=== PATIENT | male | born 1970 | race Two or more races ===

== ENCOUNTER 2024-09-03 07:38 | Emergency (ER) | payer MEDICAID ==
[~2024-09-03] VITALS: Ht 175.3 cm; Wt 100.0 kg
[2024-09-03 08:19] VITALS: BP 136/82; PULSE 74; RESP 20; TEMP 98.5; O2SAT 98
--- NOTE | 2024-09-03 08:21 | ED.PDOC ---
Musculoskeletal HPI Comments 53 year old male with no pertinent hx preset for left foot and ankle pain x 2 days after dropping a hitch that weighted 40 lb Pain located to dorsal aspect of the metacarpals and lateral malleolus Able to ambulate Pain rated 7/10 Fractured same foot years ago Denies redness or swelling around the ankle Denies fever chills night sweats nausea vomiting Chief Complaint: Lower Extremity Time Seen by MD: 07:45 Reviewed Notes: Nurses Notes, Medications, Allergies Allergies: Coded Allergies: NO KNOWN ALLERGIES (Unverified , 09/03/24) Information Source: Patient Mode of Arrival: Wheelchair Family History Family History: Reviewed,noncontributory to illness Social History Smoker: Non-Smoker Alcohol: Denies ETOH Use Drugs: Denies Drug Use All Other Systems: Reviewed and Negative (Per HPI) Physical Exam General Appearance: No Apparent Distress, Normal HEENT: Normal ENT Inspection, Pharynx Normal, TMs Normal Neck: Full Range of Motion, Non-Tender, Normal, Normal Inspection Respiratory: Chest Non-Tender, Lungs Clear, No Accessory Muscle Use, No Respiratory Distress, Normal Breath Sounds Cardiovascular: No Edema, No JVD, No Murmur, No Gallop, Normal Peripheral Pulses, Regular Rate/Rhythm Breast Exam: Deferred Gastrointestinal: No Organomegaly, Non Tender, No Pulsatile Mass, Normal Bowel Sounds, Soft Genitalia: Deferred Pelvic: Deferred Rectal: Deferred Extremities: No calf tenderness, Normal capillary refill, Normal inspection, Normal range of motion, Non-tender, No pedal edema Musculoskeletal : Apperance: Normal Neurologic: Alert, No Motor Deficits, Normal Affect, Normal Mood, No Sensory Deficits Cerebellar Function: Normal Reflexes: Normal Skin: Dry, Normal Color, Warm Lymphatic: No Adenopathy Was a procedure done? Was a procedure done?: No Images 1 - No gross abnormality on inspection. No soft tissue swelling. No ecchymosis. Localized tenderness to the dorsal aspect of the metacarpals. Full range of motion. Dorsalis pedis 2+. Distal neuro sensation intact Differential Diagnosis EXT Differential Diagnosis: Fracture, Sprain, Dislocation X-Ray, Labs, Meds, VS Vital Signs Date Time Temp Pulse Resp B/P (MAP) Pulse Ox O2 Delivery O2 Flow Rate FiO2 09/03/24 08:19 98.5 74 20 136/82 (100) 98 98.5 09/03/24 08:19 74 20 98 Room Air 09/03/24 07:45 98.3 79 20 135/87 (103) 96 Current Medications Medications (Trade) Dose Ordered Sig/Sameer Route Start Time Stop Time Status Last Admin Acetaminophen/ Hydrocodone Bitart ([place] 10/325MG Tab) 1 tab ONCE ONCE PO 09/03/24 08:30 09/03/24 08:45 DC 09/03/24 08:57 PATIENT: MICHELLE LOVEACCT: [id number]: [id number] : 1970 LOC: ER ROOM / BED: / AGE / SEX: 53 / M ADM STATUS: REG ER SERVICE 9 ORDERING PHYSICIAN: DANIEL AVENDANO NP PROCEDURE(s): LFOOT - L FOOT 3 VIEW XRAY REASON: crushed injury 2 days ago ORDER NUMBER(s): [id number], ACCESSION NUMBER(s): [id number] CLINICAL INDICATION: trauma TECHNIQUE: 3 radiographic views of the left foot were obtained. Comparison: None FINDINGS/IMPRESSION: There is no evidence of acute fracture or dislocation. The visualized joint space is well maintained. The alignment is anatomical. There is no radiopaque foreign body. ATED BY: MAURILIO ORTIZ MD DICTATED DATE/TIME: 09/03/24899 SIGNED BY: MAURILIO ORTIZ MD SIGNED DATE/TIME: 09/03/24899 CC: X-Ray, Labs, Meds, VS Comment Findings: No fracture or dislocation My wet read reveals no apparent acute bony abnormality, no FB, minimal to no soft tissue swelling and appropriate alignment. Presentation most consistent with Sprain. Patient does not currently demonstrate complications of sprain such as compartment syndrome, arterial or nerve injury. Differentials considered but not limited to: sprain, fracture, achilles tendon rupture The joint itself is non-irritable with ROM and there is no overlying redness and warmth to suggest injection. The Achilles and dorsiflexion tendon are non-tender and extension is intact. Disposition: Discharge. Supportive bracing provided. Patient was placed in an air-splint, WBAT. RICE. Strict return precautions and instructions to follow up with primary MD within 24-48 hours for further evaluation. May benefit from additional imaging such as MRI. NSAIDs as needed for pain Time of 1ST Reevaluation: 09:15 Reevaluation 1ST: Improved Patient Education/Counseling: Diagnosis, Treatment Family Education/Counseling: Diagnosis, Treatment Departure 1 Departure Time of Disposition: 09:29 Impression: Primary Impression: Foot sprain Qualified Codes: S93.602A - Unspecified sprain of left foot, initial encounter Additional Impression: Injury, crush, foot Qualified Codes: S97.82XA - Crushing injury of left foot, initial encounter Disposition: HOME / SELF CARE / HOMELESS Condition: Stable e-Prescriptions Ibuprofen Micronized (Ibuprofen) 800 Mg Tab 800 MG PO TIDWM for 7 Days, #21 TAB 0 Refills Prov: DANIEL AVENDANO NP 09/03/24 Discharged With: Self Critical Care Note Critical Care Time?: No Stability Stability form required: No Heart Score Heart Score: Heart Score Response (Comments) Value History N/A 0 EKG N/A 0 Age N/A 0 Risk Factors N/A 0 Troponin N/A 0 Total 0 DANIEL AVENDANO NP Sep 03, 2024 08:21
[2024-09-03] MEDS: HYDROcodone-ACET 10/325MG TAB PO ONE (08:57)
--- NOTE | 2024-09-03 09:01 | DVH ---
CLINICAL INDICATION: trauma TECHNIQUE: 3 radiographic views of the left foot were obtained. Comparison: None FINDINGS/IMPRESSION: There is no evidence of acute fracture or dislocation. The visualized joint space is well maintained. The alignment is anatomical. There is no radiopaque foreign body.
--- NOTE | 2024-09-03 09:12 | DVH ---
CLINICAL INDICATION: Trauma TECHNIQUE: 3 radiographic views of the left ankle were obtained. Comparison: None FINDINGS/IMPRESSION: There is no evidence of acute fracture or dislocation. The visualized joint space is well maintained. The alignment is anatomical. There is no radiopaque foreign body.
[2024-09-03] MEDS ORDERED: IBUP-1455 PO (09:30)
== END 2024-09-03 10:00 | disposition home or self-care (01) ==
LOC: ER 07:38
DX: S97.82XA Crushing injury of left foot, initial encounter (principal); S93.602A Unspecified sprain of left foot, initial encounter; W23.0XXA Caught, crushed, jammed, or pinched between moving objects, initial encounter; Y93.89 Activity, other specified; Y92.89 Other specified places as the place of occurrence of the external cause; Y99.8 Other external cause status
CPT/HCPCS: 73610; 73630

== ENCOUNTER 2025-02-26 00:48 | Emergency (ER) | payer MEDICAID ==
[~2025-02-26] VITALS: Ht 175.3 cm; Wt 107.3 kg
[2025-02-26 00:48] VITALS: BP 132/83; PULSE 91; RESP 16; TEMP 98.2; O2SAT 96
[~2025-02-26 00:48] MED LIST: IBUP-1455 PO
[2025-02-26 01:52] LABS: Hematocrit 44.6 % (41.0-53.0); Hemoglobin 15.4 g/dL (13.5-17.5); Mean Corpuscular Hemoglobin 31.2 pg (28.0-32.0); Mean Corpuscular Volume 90.3 fL (80.0-100.0); Nucleated Red Blood Cells % 0.1 %
[2025-02-26 02:10] LABS: Alanine Aminotransferase 37 U/L (7-40); Albumin 4.2 g/dL (3.2-4.8); Alkaline Phosphatase 87 U/L (46-116); Anion Gap 6 (5-15); BUN/Creatinine Ratio 12.9 (10.0-20.0); Blood Urea Nitrogen 13 mg/dL (9-23); Calcium 10.3 mg/dL (8.7-10.4); Chloride 101 mmol/L (98-107); Glucose 91 mg/dL (74-106); Potassium 3.7 mmol/L (3.5-5.1); Sodium 139 mmol/L (136-145); Total Protein 7.0 g/dL (5.7-8.2)
[2025-02-26 02:11] LABS: Bilirubin, Total 0.3 mg/dL (0.2-1.0)
[2025-02-26 02:14] LABS: Carbon Dioxide 32 mmol/L (20-31)
[2025-02-26 02:23] LABS: Urine Protein, UAD Negative (Negative)
--- NOTE | 2025-02-26 02:38 | DVH ---
Exam: CT CT AB PEL WO CON-NO ORAL OR IV History: FLANK PAIN AND HEMATURIA Comparison Study: None Technique: Multidetector spiral CT of the abdomen was performed from lung bases to pubic symphysis. I maging was performed without IV contrast. Axial, coronal and sagittal multiplanar reformats were obta ined from the axial data set by the technologist. Radiation Dose : 1. Abdomen/Pelvis: CTDIvol 19.49 mGy, DLP 1190.64 mGy*cm. Findings: Evaluation of solid organs is limited due to lack of intravenous contrast use. Lung Bases: No acute or significant lung base finding. Normal heart size. No pleural or pericardial effusion. Liver: The liver is normal in size with a mildly lobulated surface morphology suggestive of cirrhotic change.. No focal lesions. Gallbladder and Biliary Tree: Unremarkable Spleen: Unremarkable Pancreas: The pancreas is grossly normal in appearance. Adrenal Glands: Unremarkable Kidneys: Mild bilateral perirenal edema. Kidneys are otherwise grossly normal without calculi or hydr onephrosis. 1.1 cm hemorrhagic appearing hyperdense exophytic right interpolar renal cyst. Bladder: Grossly unremarkable for degree of distention. Bowel: The stomach is grossly normal in appearance. Small bowel and colon are normal in caliber and d istribution. The appendix is normal. Ascites: Absent Lymphadenopathy: No mesenteric, retroperitoneal or periportal lymphadenopathy. Abdominal Wall and Mesentery: Unremarkable. Vasculature: The visualized abdominal aorta is normal in size and caliber. Evaluation of abdominal a nd pelvic vessels is limited due to lack of intravenous contrast. Pelvic Organs: Unremarkable Musculoskeletal: No aggressive focal bony lesions, acute fractures or dislocation. IMPRESSION: 1. No acute abdominal or pelvic findings. 2. Cirrhotic liver morphology. 3. Nonspecific mild bilateral perirenal edema without evidence of hydronephrosis or nephrolithiasis. 4. Hemorrhagic appearing hyperdense exophytic right interpolar renal cyst. Radiation optimization: All CT scans at this facility use at least one of these dose optimization jose hniques: automated exposure control mA and/or kV adjustment per patient size (includes targeted exam s where dose is matched to clinical indication) or iterative reconstruction.
== END 2025-02-26 03:26 | disposition left against medical advice (07) ==
LOC: ER 00:48
DX: R31.9 Hematuria, unspecified (principal); Z53.21 Procedure and treatment not carried out due to patient leaving prior to being seen by health care provider
CPT/HCPCS: 36415; 74176; 80053; 81001; 85025

== ENCOUNTER 2025-07-03 14:51 | Inpatient (IN) | payer MEDICAID ==
[~2025-07-03] VITALS: Ht 175.3 cm; Wt 106.8 kg
--- NOTE | 2025-07-03 15:41 | ED.PDOC ---
GI ASSESSMENT HPI Comments 54 y.o male with PMHx of hepatitis C and liver cirrhosis, presents to the ED for a chief complaint of chronic abdominal pain and bloating with new onset of hematuria x 1 day. Patient reports since his cirrhosis diagnosis, has not had normal bowel movements (runny) and constantly experiences burning sensation throughout his whole abdomen. Today he states bloating increased and is concerned of hematuria. He denies any fever, chills, rectal bleeding, dysuria, flank or back pain. Chief Complaint: Abdominal Pain Time Seen by MD: 15:33 Reviewed Notes: Nurses Notes, Medications, Allergies Allergies: Coded Allergies: NO KNOWN ALLERGIES (Unverified , 09/03/24) Home Meds No Active Prescriptions or Reported Meds Information Source: Patient Mode of Arrival: Ambulatory Timing: Days Duration: Since onset Quality: Burning, Sharp Vomitus: None Stool: Loose Severity: Moderate Recent: None Recent Hx of: None Pain Location: Diffuse Associated sign and symptoms: Diarrhea, Abdominal Pain Past Medical History PAST MEDICAL HISTORY: Liver Surgical History: Denies all surgeries Family History Family History: Reviewed,noncontributory to illness Social History Smoker: Non-Smoker Alcohol: Denies ETOH Use Drugs: Denies Drug Use Lives In: Home Constitutional: denies: chills, diaphoresis, fatigue, fever, malaise, sweats, weakness, others EENTM: denies: blurred vision, double vision, ear bleeding, ear discharge, ear drainage, ear pain, ear ringing, eye pain, eye redness, hearing loss, mouth pain, mouth swelling, nasal discharge, nose bleeding, nose congestion, nose pain, photophobia, tearing, throat pain, throat swelling, voice changes, others Respiratory: denies: cough, hemoptysis, orthopnea, SOB at rest, shortness of breath, SOB with excertion, stridor, wheezing, others Cardiovascular: denies: chest pain, dizzy spells, diaphoresis, Dyspnea on exertion, edema, irregular heart beat, left arm pain, lightheadedness, palpitations, PND, syncope, others Gastrointestinal: reports: abdominal pain, diarrhea; denies: abdomen distended, blood streaked bowels, constipated, dysphagia, difficulty swallowing, hematemesis, melena, nausea, poor appetite, poor fluid intake, rectal bleeding, rectal pain, vomiting, others Genitourinary: reports: hematuria; denies: burning, dysuria, flank pain, frequency, incontinence, penile discharge, penile sore, pain, testicle pain, testicle swelling, urgency, others Neurological: denies: dizziness, fainting, headache, left sided numbness, left sided weakness, numbness, paresthesia, pre-existing deficit, right sided numbness, right sided weakness, seizure, speech problems, tingling, tremors, weakness, others Musculoskeletal: denies: back pain, gout, joint pain, joint swelling, muscle pain, muscle stiffness, neck pain, others Integumetry: denies: bruises, change in color, change in hair/nails, dryness, laceration, lesions, lumps, rash, wounds, others Allergic/Immunocompromised: denies: Difficulty Healing, Frequent Infections, Hives, Itching, others Hematologic/Lymphatic: denies: anemia, blood clots, easy bleeding, easy bruising, swollen glands, others Endocrine: denies: excessive hunger, excessive sweating, excessive thirst, excessive urination, flushing, intolerance to cold, intolerance to heat, unexplained weight gain, unexplained weight loss, others Psychiatric: denies: anxiety, bipolar disorder, depression, hopeless, panic disorder, schizophrenia, sleepless, suicidal, others All Other Systems: Reviewed and Negative Physical Exam General Appearance: Normal, Other (uncomfortable appearing ) HEENT: Normal ENT Inspection, Pharynx Normal, TMs Normal Neck: Full Range of Motion, Non-Tender, Normal, Normal Inspection Respiratory: Chest Non-Tender, Lungs Clear, No Accessory Muscle Use, No Respiratory Distress, Normal Breath Sounds Cardiovascular: No Edema, No JVD, No Murmur, No Gallop, Normal Peripheral Pulses, Regular Rate/Rhythm Breast Exam: Deferred Gastrointestinal: Diffuse, No Organomegaly, No Pulsatile Mass, Normal Bowel Sounds, Tenderness Genitalia: Deferred Pelvic: Deferred Rectal: Deferred Extremities: No calf tenderness, Normal capillary refill, Normal inspection, Normal range of motion, Non-tender, No pedal edema Musculoskeletal : Apperance: Normal Neurologic: Alert, financial foundations associate II-XII nml as Tested, No Motor Deficits, Normal Affect, Normal Mood, No Sensory Deficits Cerebellar Function: Normal Reflexes: Normal Skin: Dry, Normal Color, Warm Lymphatic: No Adenopathy Was a procedure done? Was a procedure done?: No GI differential Dx Differential Diagnosis: Gastritis/PUD, Gastroenteritis, Hepatitis, Inflammatory BD, Ischemic Bowel, Pancreatitis, UTI, Dehydration, Electrolyte Imbalance, Food Poisoning, Bacterial, Parasitic, Viral X-Ray, Labs, Meds, VS Vital Signs Date Time Temp Pulse Resp B/P (MAP) Pulse Ox O2 Delivery O2 Flow Rate FiO2 07/03/25 21:00 89 Room Air* 0 07/03/25 21:00 98.0 93 18 127/68 (87) 89 98.0 07/03/25 19:14 100 18 95 Room Air* 0 07/03/25 19:14 98.4 100 18 132/91 (105) 95 98.4 07/03/25 18:26 195/100 07/03/25 17:06 92 16 195/100 07/03/25 17:05 98.8 94 16 195/100 (131) 92 98.8 07/03/25 16:35 76 18 139/98 07/03/25 16:19 76 18 98 Room Air 07/03/25 16:19 98.2 76 18 139/98 (112) 98 98.2 07/03/25 16:19 76 18 98 Room Air* 0 07/03/25 16:19 98.2 76 18 139/98 (112) 98 98.2 07/03/25 14:59 97.6 93 18 187/106 96 97.6 Lab Test 07/03/25 15:55 07/03/25 15:35 Range/Units White Blood Count 8.6 4.4-10.8 10^3/uL Red Blood Count 5.17 4.5-5.90 10^6/uL Hemoglobin 16.6 13.5-17.5 g/dL Hematocrit 46.8 41.0-53.0 % Mean Corpuscular Volume 90.4 80.0-100.0 fL Mean Corpuscular Hemoglobin 32.1 H 28.0-32.0 pg Mean Corpuscular Hemoglobin Concent 35.5 32.0-36.0 g/dL Red Cell Distribution Width 13.3 11.8-14.3 % Platelet Count 198 140-450 10^3/uL Mean Platelet Volume 9.4 6.9-10.8 fL Neutrophils (%) (Auto) 40.2 37.0-80.0 % Lymphocytes (%) (Auto) 44.7 10.0-50.0 % Monocytes (%) (Auto) 10.9 0.0-12.0 % Eosinophils (%) (Auto) 3.3 0.0-7.0 % Basophils (%) (Auto) 0.9 0.0-2.0 % Neutrophils # (Auto) 3.5 1.6-8.6 10 ^3/uL Lymphocytes # (Auto) 3.9 0.4-5.4 10 ^3/uL Monocytes # (Auto) 0.9 0-1.3 10 ^3/uL Eosinophils # (Auto) 0.3 0-0.8 10 ^3/uL Basophils # (Auto) 0.1 0-0.2 10 ^3/uL Nucleated Red Blood Cells 0.0 % Sodium Level 138 136-145 mmol/L Potassium Level 3.9 3.5-5.1 mmol/L Chloride Level 102 98-107 mmol/L Carbon Dioxide Level 28 20-31 mmol/L Anion Gap 8 5-15 Blood Urea Nitrogen 15 9-23 mg/dL Creatinine 1.14 0.700-1.30 mg/dL Glomerular Filtration Rate Calc 76 >90 mL/min BUN/Creatinine Ratio 13.2 10.0-20.0 Serum Glucose 93 74-106 mg/dL Calcium Level 9.7 8.7-10.4 mg/dL Total Bilirubin 0.6 0.2-1.0 mg/dL Aspartate Amino Transferase (AST) 34 13-40 U/L Alanine Aminotransferase (ALT) 49 H 7-40 U/L Alkaline Phosphatase 85 46-116 U/L Total Protein 7.9 5.7-8.2 g/dL Albumin 4.3 3.2-4.8 g/dL Lipase 31 12-53 U/L Urine Color Colorless Yellow Urine Clarity Clear Clear Urine pH 5.5 5.0-9.0 Urine Specific [place] 1.010 1.001-1.035 Urine Protein Negative Negative Urine Ketones Negative Negative Urine Blood Negative Negative /uL Urine Nitrite Negative Negative Urine Bilirubin Negative Negative Urine Urobilinogen Normal Negative mg/dL Urine Leukocyte Esterase Negative Negative /uL Urine RBC None seen 0 - 3 /hpf Urine Microscopic WBC < 1 0-3 /HPF Urine Squamous Epithelial Cells None seen <5 /hpf Urine Bacteria None seen None Seen /hpf Urine Glucose Normal Normal mg/dL Time of 1ST Reevaluation: 15:41 Reevaluation 1ST: Unchanged Patient Education/Counseling: Diagnosis, Treatment, Prognosis Family Education/Counseling: No Family Present SEPSIS Sepsis Screen Date sepsis recognized/suspect: Jul 03, 2025 Time Sepsis recognized/suspect: 150 Recent Procedure: No On Antibiotic Therapy: No Respiratory Rate >20: No Heart Rate >90: No Temp<36 C (96.8 F) or >38.3 C: No SBP <90 or MAP <65 mmHG: No New Acute Mental Status Change: No Is the patient on CPAP, BIPAP,: No Physician Orders Ct Ab Pel With Iv Con Only (07/03/25 17:27) Chest Portable (07/03/25 17:47) Code Status (07/03/25 20:48) Drug Screen (07/03/25 21:21) Admit (07/03/25 21:42) Echo 2d Mode Cardiac Dop (07/04/25 20:48) Vital Signs Date Time Temp Pulse Resp B/P (MAP) Pulse Ox O2 Delivery O2 Flow Rate FiO2 07/03/25 21:00 89 Room Air* 0 07/03/25 21:00 98.0 93 18 127/68 (87) 89 98.0 07/03/25 19:14 100 18 95 Room Air* 0 07/03/25 19:14 98.4 100 18 132/91 (105) 95 98.4 07/03/25 18:26 195/100 07/03/25 17:06 92 16 195/100 07/03/25 17:05 98.8 94 16 195/100 (131) 92 98.8 07/03/25 16:35 76 18 139/98 07/03/25 16:19 76 18 98 Room Air 07/03/25 16:19 98.2 76 18 139/98 (112) 98 98.2 07/03/25 16:19 76 18 98 Room Air* 0 07/03/25 16:19 98.2 76 18 139/98 (112) 98 98.2 07/03/25 14:59 97.6 93 18 187/106 96 97.6 Laboratory Tests Test 07/03/25 15:55 White Blood Count 8.6 10^3/uL (4.4-10.8) Departure 1 Departure Time of Disposition: 14:07 (Patient presented with abdominal pain that was concerning for possible appendicits, gastritis, cholecystitis, colitis, gastroenteritis, sbo, or orther possible surgical emergency. Data: 1. I ordered and reviewed the result of at least 3 labs including a CBC, BMP, and Urinalysis. 2. I independently interpreted the following tests: CT Abdomen and Pelvis is concerning for pyelo nephro .Risk:This patient has a high risk of morbidity due to further diagnostic testing or treatment and may suffer from an acute abdominal process disorder. Workup reveals pyelonephritis and patient should be admitted for further workup. and possible expert consultation. ) Impression: Primary Impression: Pyelonephritis Additional Impression: Intractable abdominal pain Disposition: ADMITTED INPATIENT Admit to: Med Surg Condition: Guarded e-Prescriptions No Active Prescriptions or Reported Meds Critical Care Note Critical Care Time?: Yes Critical care comment: Intractable abdominal pain Authorized and Performed by: Marshall Hernández MD Total critical care time: Approximately 39 minutes Due to a high probability of clinically significant, life threatening deterioration, the patient required my highest level of preparedness to intervene emergently and I personally spent this critical care time directly and personally managing the patient. This critical care time included obtaining a history; examining the patient; pulse oximetry; ordering and review of studies; arranging urgent treatment with development of a management plan; evaluation of patient's response to treatment; frequent reassessment; and, discussions with other providers. This critical care time was performed to assess and manage the high probability of imminent, life-threatening deterioration that could result in multi-organ failure. It was exclusive of separately billable procedures and treating other patients and teaching time. Please see my other sections and the rest of the note for further information on patient assessment and treatment. Stability Stability form required: No I personally scribed for MARSHALL HERNÁNDEZ MD ([email or web address]) on 07/03/25 at 15:41. Electronically submitted by Laura Doshi ([facility]). MARSHALL HERNÁNDEZ MD Jul 03, 2025 15:41
[2025-07-03 16:14] LABS: Hematocrit 46.8 % (41.0-53.0); Hemoglobin 16.6 g/dL (13.5-17.5); Mean Corpuscular Hemoglobin 32.1 pg (28.0-32.0); Mean Corpuscular Volume 90.4 fL (80.0-100.0); Nucleated Red Blood Cells % 0.0 %
[2025-07-03 16:19] VITALS: PULSE 76; RESP 18; O2SAT 98
[2025-07-03] MEDS: SODIUM CHLORIDE 0.9% 1,000 ML IV ONE (16:24)
[2025-07-03 16:30] LABS: Urine Protein, UAD Negative (Negative)
[2025-07-03 16:32] LABS: Albumin 4.3 g/dL (3.2-4.8); Alkaline Phosphatase 85 U/L (46-116); Anion Gap 8 (5-15); BUN/Creatinine Ratio 13.2 (10.0-20.0); Bilirubin, Total 0.6 mg/dL (0.2-1.0); Blood Urea Nitrogen 15 mg/dL (9-23); Calcium 9.7 mg/dL (8.7-10.4); Carbon Dioxide 28 mmol/L (20-31); Chloride 102 mmol/L (98-107); Glucose 93 mg/dL (74-106); Lipase 31 U/L (12-53); Potassium 3.9 mmol/L (3.5-5.1); Sodium 138 mmol/L (136-145); Total Protein 7.9 g/dL (5.7-8.2)
[2025-07-03 16:33] LABS: Alanine Aminotransferase 49 U/L (7-40)
[2025-07-03] MEDS: MORPHINE SULFATE 4 MG/ML SYR/VIAL IV ONE (16:35)
[2025-07-03] MEDS: ONDANSETRON HCL 4 MG/2 ML VIAL IV ONE (16:35)
[2025-07-03] MEDS: MORPHINE SULFATE 4 MG/ML SYR/VIAL ONE (17:04)
[2025-07-03] MEDS: ONDANSETRON HCL 4 MG/2 ML VIAL ONE (17:04)
--- NOTE | 2025-07-03 18:12 | DVH ---
CHEST RADIOGRAPH Indication: sob Technique: Single frontal view of the chest was obtained Comparison: None FINDINGS: Lines and Tubes: None Lungs: No focal consolidation. Pleura: No effusion. No pneumothorax. Cardiomediastinal contours: Unremarkable Bones: No acute osseous abnormality. IMPRESSION: 1. No acute cardiopulmonary disease.
[2025-07-03] MEDS: hydrALAZINE HCL 20 MG/ML VL IV ONE (18:26)
--- NOTE | 2025-07-03 18:26 | DVH ---
Exam: CT CT AB PEL WITH IV CON ONLY History: abdominal pain Comparison Study: None TECHNIQUE: A digital licensing worker image was obtained. During the uneventful, intravenous administration of contrast material, multislice data acquisition was obtained through the abdomen and pelvis. The data set was subsequently reconstructed into multiplanar reformats. RADIATION DOSE: CTDI vol 23.4 mGy. DLP 1239.6 mGy.cm Findings: Lungs: Basilar atelectasis/scarring. Liver: Nodular hepatic contour. Spleen: Unremarkable. Pancreas: Unremarkable. Gallbladder: Unremarkable. Adrenals: Unremarkable Kidneys: Nonspecific bilateral perinephric stranding. No hydronephrosis. 1.0 cm indeterminate right renal cyst. Pelvic Viscera: Unremarkable. Vasculature: Unremarkable. Retroperitoneum: Unremarkable. Bowel: No bowel obstruction. Portions of the bowel are decompressed, limiting assessment. The appendix is normal. Musculoskeletal: Grade 1 anterolisthesis of L5 on S1 on the basis of bilateral pars defects. Soft tissues: Unremarkable Impression: 1. Nonspecific bilateral perinephric stranding, clinical correlation is suggested to exclude infectious / inflammatory process. 2. 1.0 cm indeterminate right renal cyst. A nonemergent MRI of the abdomen is suggested in further assessment. 3. Additional findings as detailed.
[2025-07-03 19:14] VITALS: PULSE 100; RESP 18; O2SAT 95
[2025-07-03 21:00] VITALS: O2SAT 89
[2025-07-03] MEDS ORDERED: NITROGLYCERIN 0.4 MG SL TAB SL PRN (21:00)
[2025-07-03] MEDS: SODIUM CHLORIDE 0.9% 1,000 ML IV SCH (21:16)
--- NOTE | 2025-07-03 21:21 | DVHHPRES ---
History of Present Illness Resident Creating Document: AMELIE BARRETO RESIDENT History of Present Illness This is a 54-year-old male with past medical history of HCV s/p treatment 5 years ago, liver cirrhosis, HTN, sciatica visited ER today due to upper abdominal pain and, bloating and back pain which started for 3 days but worsen around 3:00 p.m. which is 8/10 intensity, tried Pepto-Bismol which does not help, no aggravating factor, no radiation. Abdominal pain associated with headache, nausea and vomiting 1 episode which contain food materials but no blood mixed with vomitus. Patient also noted 1 episode of hematuria yesterday which initially contain fresh blood and then pinkish in color. Patient visited the ER on 03/09/2025 due to hematuria. Never follow-up with urology. Currently patient denies any fever, chest pain, SOB, lower abdominal pain or any focal weakness. Past medical history: HCV s/p treatment, HTN, sciatica, liver cirrhosis Surgical history: Nothing contributory Family history: Nothing contributory Personal history: Smokes cigarettes for 30 years, marijuana, remote history of IV drug use Allergy: No known allergy PCP: Not selected Review of Systems Constitutional: Yes: Weakness, Malaise; No: Fever, Chills, Sweats, Other Eyes: No: Pain, Vision change, Conjunctivae inflammation, Eyelid inflammation, Other, Redness ENT: No: Ear pain, Ear discharge, Nose pain, Nose discharge, Nose congestion, Mouth pain, Mouth swelling, Throat pain, Throat swelling, Other Respiratory: No: Cough, Dry, Shortness of breath, SOB with excertion, Wheezing, Hemoptysis, Pleuritic Pain, Sputum, Wheezing, Other Cardiovascular: No: Chest Pain, Palpitations, Orthopnea, Paroxysmal Noc. Dyspnea, Edema, Lt Headedness, Other Gastrointestinal: Nausea, Vomiting, Abdominal Pain, Other (Bloating); No: Diarrhea, Constipation, Melena, Hematochezia Genitourinary: Hematuria Musculoskeletal: back pain; No: other, neck pain, shoulder pain, arm pain, hand pain, leg pain, foot pain Skin: No: Rash, Lesions, Jaundice, Bruising, Other Allergies: Coded Allergies: NO KNOWN ALLERGIES (Unverified , 09/03/24) Exam Vital Signs Vital Signs Date Time Temp Pulse Resp B/P (MAP) Pulse Ox O2 Delivery O2 Flow Rate FiO2 11/21/25 19:14 100 18 95 Room Air* 0 21 07/03/25 19:14 98.4 132/91 (105) 98.4 General Appearance: Alert, Oriented X3, Cooperative, moderate distress HEENT: Atraumatic, PERRLA, EOMI Respiratory: Clear to auscultation, Normal air movement Cardiovascular: Regular rate, Normal S1, Normal S2, No murmurs Abdominal: Normal bowel sounds, Soft, Other (Tender on deep palpation epigastric) Extremities: No clubbing, No cyanosis, Normal pulses Skin: No rashes, No breakdown Neuro: Normal gait, Normal speech, Strength at 5/5 X4 ext, Sensation intact Labs/Xrays Labs Test 07/03/25 15:55 07/03/25 15:35 Range/Units White Blood Count 8.6 4.4-10.8 10^3/uL Red Blood Count 5.17 4.5-5.90 10^6/uL Hemoglobin 16.6 13.5-17.5 g/dL Hematocrit 46.8 41.0-53.0 % Mean Corpuscular Volume 90.4 80.0-100.0 fL Mean Corpuscular Hemoglobin 32.1 H 28.0-32.0 pg Mean Corpuscular Hemoglobin Concent 35.5 32.0-36.0 g/dL Red Cell Distribution Width 13.3 11.8-14.3 % Platelet Count 198 140-450 10^3/uL Mean Platelet Volume 9.4 6.9-10.8 fL Neutrophils (%) (Auto) 40.2 37.0-80.0 % Lymphocytes (%) (Auto) 44.7 10.0-50.0 % Monocytes (%) (Auto) 10.9 0.0-12.0 % Eosinophils (%) (Auto) 3.3 0.0-7.0 % Basophils (%) (Auto) 0.9 0.0-2.0 % Neutrophils # (Auto) 3.5 1.6-8.6 10 ^3/uL Lymphocytes # (Auto) 3.9 0.4-5.4 10 ^3/uL Monocytes # (Auto) 0.9 0-1.3 10 ^3/uL Eosinophils # (Auto) 0.3 0-0.8 10 ^3/uL Basophils # (Auto) 0.1 0-0.2 10 ^3/uL Nucleated Red Blood Cells 0.0 % Sodium Level 138 136-145 mmol/L Potassium Level 3.9 3.5-5.1 mmol/L Chloride Level 102 98-107 mmol/L Carbon Dioxide Level 28 20-31 mmol/L Anion Gap 8 5-15 Blood Urea Nitrogen 15 9-23 mg/dL Creatinine 1.14 0.700-1.30 mg/dL Glomerular Filtration Rate Calc 76 >90 mL/min BUN/Creatinine Ratio 13.2 10.0-20.0 Serum Glucose 93 74-106 mg/dL Calcium Level 9.7 8.7-10.4 mg/dL Total Bilirubin 0.6 0.2-1.0 mg/dL Aspartate Amino Transferase (AST) 34 13-40 U/L Alanine Aminotransferase (ALT) 49 H 7-40 U/L Alkaline Phosphatase 85 46-116 U/L Total Protein 7.9 5.7-8.2 g/dL Albumin 4.3 3.2-4.8 g/dL Lipase 31 12-53 U/L Urine Color Colorless Yellow Urine Clarity Clear Clear Urine pH 5.5 5.0-9.0 Urine Specific [place] 1.010 1.001-1.035 Urine Protein Negative Negative Urine Ketones Negative Negative Urine Blood Negative Negative /uL Urine Nitrite Negative Negative Urine Bilirubin Negative Negative Urine Urobilinogen Normal Negative mg/dL Urine Leukocyte Esterase Negative Negative /uL Urine RBC None seen 0 - 3 /hpf Urine Microscopic WBC < 1 0-3 /HPF Urine Squamous Epithelial Cells None seen <5 /hpf Urine Bacteria None seen None Seen /hpf Urine Glucose Normal Normal mg/dL SEPSIS Sepsis Screen Date sepsis recognized/suspect: Jul 03, 2025 Time Sepsis recognized/suspect: 1502 Recent Procedure: No On Antibiotic Therapy: No Respiratory Rate >20: No Heart Rate >90: No Temp<36 C (96.8 F) or >38.3 C: No SBP <90 or MAP <65 mmHG: No New Acute Mental Status Change: No Is the patient on CPAP, BIPAP,: No Physician Orders Ct Ab Pel With Iv Con Only (07/03/25 17:27) Chest Portable (07/03/25 17:47) Admit (07/03/25 20:48) Code Status (07/03/25 20:48) Sodium Chloride 0.9% (07/03/25 21:00) Echo 2d Mode Cardiac Dop (07/03/25 20:48) Nitroglycerin Sublingual (Ntrostat Subli (07/03/25 21:00) Stat Ekg For Chest Pain (07/03/25 20:48) Notify Of Changes From Base (07/03/25 20:48) Cardiac Diet-2gna,Lofat,Lochol (07/04/25 Breakfast) Pantoprazole Tablet (Protonix Tablet) (07/04/25 06:00) Ketorolac Injection (Toradol Injection) (07/03/25 21:00) Vital Signs Date Time Temp Pulse Resp B/P (MAP) Pulse Ox O2 Delivery O2 Flow Rate FiO2 07/03/25 19:14 100 18 95 Room Air* 0 07/03/25 19:14 98.4 100 18 132/91 (105) 95 98.4 07/03/25 18:26 195/100 07/03/25 17:06 92 16 195/100 07/03/25 17:05 98.8 94 16 195/100 (131) 92 98.8 07/03/25 16:35 76 18 139/98 07/03/25 16:19 76 18 98 Room Air 07/03/25 16:19 98.2 76 18 139/98 (112) 98 98.2 07/03/25 16:19 76 18 98 Room Air* 0 07/03/25 16:19 98.2 76 18 139/98 (112) 98 98.2 07/03/25 14:59 97.6 93 18 187/106 96 97.6 Laboratory Tests Test 07/03/25 15:55 White Blood Count 8.6 10^3/uL (4.4-10.8) Medications Medications Dose Ordered Sig/Sameer Route Start Time Stop Time Status Last Admin Dose Admin Hydralazine HCl 20 mg ONCE ONCE IV 07/03/25 17:30 07/03/25 17:35 DC 07/03/25 18:26 20 MG Morphine Sulfate 4 mg ONCE ONCE IV 07/03/25 15:45 07/03/25 15:46 DC 07/03/25 16:35 4 MG Ondansetron HCl 4 mg ONCE ONCE IV 07/03/25 15:45 07/03/25 15:46 DC 07/03/25 16:35 4 MG Sodium Chloride 1,000 ml @ 1,000 mls/hr Q1H ONCE IV 07/03/25 15:45 07/03/25 16:44 DC 07/03/25 16:24 1,000 MLS/HR Assessment/Plan Assessment/Plan Intractable abdominal pain likely pyelonephritis Right renal cyst Hematuria Patient came with intractable abdominal pain and back pain in ER patient received hydralazine, ondansetron, morphine, NSS UA- negative lipase 31 CT abdomen with IV contrast- Nodular hepatic contour. Nonspecific bilateral perinephric stranding. 1.0 cm indeterminate right renal cyst. Ketorolac IVF Monitor lab Urology outpatient. Liver cirrhosis History of hepatitis-C infection s/p treatment Transaminitis ALT 49, AST and ALP in normal limit follow-up labs Grade 1 anterolisthesis of L5 on S1 Chronic Low-back pain History of sciatic CT abdomen with IV contrast- Nodular hepatic contour. Bibasilar lung atelectasis or scarring CT abdomen and pelvis; Lungs: Basilar atelectasis/scarring CXR- No acute cardiopulmonary disease. Essential hypertension BP 187/106 and repeat BP 132/91 Start losartan 25 mg EKG Echocardiogram Monitor blood Smoking/substance abuse Remote history of IVD Counseling done. More than 13 minute spent. Diet: Cardiac GI prophylaxis: Pantoprazole DVT prophylaxis: Patient ambulating Goals of care discussion. More than 29 minute spent with patient. Full code status Case discussed with Dr. Adams. Plan discussed with: Patient, Other (Nurse) My Orders Orders - AMELIE BARRETO RESIDENT Procedure Category Date Status Time Admit ADMIT 07/03/25 Transmitted 20:48 Code Status CODE 07/03/25 Transmitted 20:48 Sodium Chloride 0.9% PHA 07/03/25 Logged 21:00 Echo 2d Mode Cardiac US 07/03/25 Logged DOP 20:48 Nitroglycerin PHA 07/03/25 Logged Sublingual (Ntrostat 21:00 Stat Ekg For Chest JARRELL 07/03/25 In Process Pain 20:48 Notify Md Of Changes JARRELL 07/03/25 In Process From Base 20:48 Cardiac DIET 07/04/25 Transmitted Diet-2gna,Lofat,Lochol Breakfast Pantoprazole Tablet PHA 07/04/25 Logged (Protonix Tablet) 06:00 Ketorolac Injection PHA 07/03/25 Logged (Toradol Injection) 21:00 Date of Service: Jul 03, 2025 Billing Provider: DANIEL ADAMS MD Common Visit Codes: [id number] INP/OBS CARE (HIGH) Secondary Visit Codes: [id number] CARE PLAN 30 MINUTES AMELIE BARRETO RESIDENT Jul 03, 2025 21:21
[2025-07-03] MEDS: KETOROLAC TROMETH 30 MG/ML 1ML VIAL IV PRN (22:43)
[2025-07-03 23:39] VITALS: BP 123/67; PULSE 87; RESP 17; TEMP 97.7; O2SAT 100; O2SAT 99
[2025-07-04 01:00] VITALS: BP 115/74; PULSE 87; RESP 17; TEMP 97.2; O2SAT 100
[2025-07-04 05:00] VITALS: BP 101/63; PULSE 83; RESP 18; TEMP 97.6; O2SAT 98
[2025-07-04] MEDS ORDERED: PANTOPRAZOLE 40 MG TAB PO ONE (05:52)
[2025-07-04] MEDS: PANTOPRAZOLE 40 MG TAB PO SCH (06:20)
[2025-07-04 07:44] LABS: Hematocrit 43.9 % (41.0-53.0); Hemoglobin 15.3 g/dL (13.5-17.5); Mean Corpuscular Hemoglobin 31.9 pg (28.0-32.0); Mean Corpuscular Volume 91.6 fL (80.0-100.0); Nucleated Red Blood Cells % 0.0 %
[2025-07-04 07:50] LABS: Anion Gap 9 (5-15); Carbon Dioxide 27 mmol/L (20-31); Chloride 104 mmol/L (98-107); Potassium 4.5 mmol/L (3.5-5.1); Sodium 140 mmol/L (136-145)
[2025-07-04 07:51] LABS: Calcium 9.2 mg/dL (8.7-10.4)
[2025-07-04 07:56] LABS: BUN/Creatinine Ratio 13.4 (10.0-20.0); Blood Urea Nitrogen 15 mg/dL (9-23); Glucose 83 mg/dL (74-106); Triglycerides 93 mg/dL (< 150)
[2025-07-04 07:58] LABS: Cholesterol 165 mg/dL (< 200)
[2025-07-04 08:05] LABS: HDL Cholesterol 34 mg/dL (40-59)
[2025-07-04 09:00] VITALS: BP 117/76; PULSE 67; RESP 15; TEMP 97.6; O2SAT 98
[2025-07-04] MEDS: LOSARTAN POTASSIUM 25 MG TAB PO SCH (09:33)
--- NOTE | 2025-07-04 12:11 | DVHPN2 ---
Reviewed: Care Plan, H&P, Labs, Medications, Previous Orders, Radiology Changes from previous H/P or p: No Changes Eyes: No Pain, No Vision change, No Conjunctivae inflammation, No Eyelid inflammation, No Other, No Redness ENT: No Ear pain, No Ear discharge, No Nose pain, No Nose discharge, No Nose congestion, No Mouth pain, No Mouth swelling, No Throat pain, No Throat swelling, No Other Cardiovascular: No Chest Pain, No Palpitations, No Orthopnea, No Paroxysmal Noc. Dyspnea, No Edema, No Lt Headedness, No Other Respiratory: No Cough, No Dry, No Shortness of breath, No SOB with excertion, No Wheezing, No Hemoptysis, No Pleuritic Pain, No Sputum, No Other Gastrointestinal: Nausea, Vomiting, Abdominal Pain; No Diarrhea, No Constipation, No Melena, No Hematochezia; Other (Bloating) Genitourinary: Hematuria Musculoskeletal: No other, No neck pain, No shoulder pain, No arm pain; back pain; No hand pain, No leg pain, No foot pain Skin: No Rash, No Lesions, No Jaundice, No Bruising, No Other Objective Vitals Vital Signs Date Time Temp Pulse Resp B/P (MAP) Pulse Ox O2 Delivery O2 Flow Rate FiO2 07/04/25 09:33 117/76 07/04/25 08:30 Room Air* 0 21 07/04/25 05:00 97.6 83 18 98 97.6 Intake/Output Intake and Output 07/04/25 07:00 Intake Total 2610 ml Balance 2610 ml Intake Oral 1040 ml IV Total 1570 ml # Voids 1 Medications Current Medications Medications Dose Ordered Sig/Sameer Route Start Time Stop Time Status Last Admin Dose Admin Sodium Chloride 1,000 ml @ 120 mls/hr Q8H20M IV 07/03/25 21:00 07/04/25 06:27 120 MLS/HR Nitroglycerin 0.4 mg Q5MINP PRN SL 07/03/25 21:00 Pantoprazole Sodium 40 mg DAILY@0600 PO 07/04/25 06:00 07/04/25 06:20 40 MG Ketorolac Tromethamine 15 mg Q6HPRN PRN IV 07/03/25 21:00 07/08/25 20:59 07/03/25 22:43 15 MG Losartan Potassium 25 mg DAILY PO 07/04/25 10:00 07/04/25 09:33 25 MG Laboratory Results Laboratory Tests 07/04/25 06:37 Chemistry Test 07/03/25 15:55 07/04/25 06:37 Albumin 4.3 g/dL (3.2-4.8) Calcium Level 9.7 mg/dL (8.7-10.4) 9.2 mg/dL (8.7-10.4) Total Protein 7.9 g/dL (5.7-8.2) Lipid panel Test 07/03/25 15:55 07/04/25 06:37 Lipase 31 U/L (12-53) Cholesterol Level 165 mg/dL (< 200) HDL Cholesterol 34 mg/dL (40-59) L Triglycerides Level 93 mg/dL (< 150) LFT Test 07/03/25 15:55 Alanine Aminotransferase (ALT) 49 U/L (7-40) H Alkaline Phosphatase 85 U/L (46-116) Aspartate Amino Transferase (AST) 34 U/L (13-40) Total Bilirubin 0.6 mg/dL (0.2-1.0) HgA1c, TSH Test 07/04/25 06:37 Hemoglobin A1c 5.4 % A1C (<5.7) Thyroid Stimulating Hormone (TSH) 1.89 uIU/mL (0.55-4.78) Urinalysis Test 07/03/25 15:35 Urine Color Colorless (Yellow) Urine Clarity Clear (Clear) Urine pH 5.5 (5.0-9.0) Urine Specific [place] 1.010 (1.001-1.035) Urine Protein Negative (Negative) Urine Ketones Negative (Negative) Urine Blood Negative /uL (Negative) Urine Nitrite Negative (Negative) Urine Bilirubin Negative (Negative) Urine Urobilinogen Normal mg/dL (Negative) Urine Leukocyte Esterase Negative /uL (Negative) Urine RBC None seen /hpf (0 - 3) Urine Microscopic WBC < 1 /HPF (0-3) Urine Squamous Epithelial Cells None seen /hpf (<5) Urine Bacteria None seen /hpf (None Seen) Urine Glucose Normal mg/dL (Normal) Labs and/or images reviewed: Labs reviewed by me, Image(s) reviewed by me Assessment/Plan Assessment/Plan Intractable abdominal pain CT abdomen pelvis without contrast negative lipase normal: Pain medications IV fluids Right renal cyst Hematuria Liver cirrhosis History of hepatitis-C infection s/p treatment Transaminitis Grade 1 anterolisthesis of L5 on S1 Chronic Low-back pain History of sciatica Hypertension Chronic current smoker: Counseling time spent 20 minutes Remote history of IV drug abuse Plan discussed with: Patient Date of Service: Jul 04, 2025 Billing Provider: LEO JUNIOR MD Common Visit Codes: [id number] INP/OBS CARE(HIGH) LEO JUNIOR MD Jul 04, 2025 12:11
[2025-07-04 13:00] VITALS: BP 112/66; PULSE 71; RESP 19; TEMP 98; O2SAT 95
--- NOTE | 2025-07-04 15:22 | DVHSR ---
APPROVED REPORT EXAM: Two-dimensional and M-mode echocardiogram with Doppler and color Doppler. Blood Pressure: 101/63 mmHg INDICATION History of Hypertension rule out cardiac RISK FACTORS Height: 5' 9", Weight: 235 DIMENSIONS LVDd 4.5 (3.8-5.7cm) LA (2D) 3.8 (1.9-4.0cm) Aortic Root 3.6 (2.0-3.7cm) LVDs 3.0 (2.5-4.0cm) LA (MM) (1.9-4.0cm) Aortic Cusp Exc 1.7 (1.5-2.0cm) EF (%) 60.0 (55-70%) Rt. Atrium 4.0 (1.9-4.0cm) Asc. Aorta cm IVSd 0.9 (0.7-1.1cm) RV (D) (1.8-2.4cm) PWd 0.9 (0.7-1.1cm) Mitral Valve Mitral Mitral Stenosis E wave 0.90m/s MV Mean GR. mmHg A wave 0.90m/s MV Peak GR. mmHg E/A ratio 1.0 2D MVA cm2 Aortic Valve Aortic Valve Aortic Stenosis V1 0.90m/s AO Mean GR. 4mmHg V2 1.30m/s AO Peak GR. 7mmHg LVOT Diameter 2.4 (1.8-2.4cm) Doppler YAZAN 3.13cm2 Pulmonic Valve V2 0.80m/s Conclusion Technically a good study, Normal Sinus Rythm. Difficult acoustic windows Normal Chamber sizes. Normal Valves Left ventricular systolic performance is preserved with an EF of 65% and normal RV function. Doppler is normal No masses or vegetations dicernable. No pericardial effusion noted.
--- NOTE | 2025-07-05 07:54 | DVHDS2 ---
Discharge Summary Date of Admission Jul 03, 2025 at 21:42 Date of Discharge: Jul 04, 2025 Admitting Diagnosis Abdominal pain Wounds: None Labs/Diagnostic Data: Laboratory Results Test 07/04/25 06:37 07/04/25 01:38 07/03/25 15:55 07/03/25 15:35 White Blood Count 6.1 10^3/uL (4.4-10.8) Red Blood Count 4.79 10^6/uL (4.5-5.90) Hemoglobin 15.3 g/dL (13.5-17.5) Hematocrit 43.9 % (41.0-53.0) Mean Corpuscular Volume 91.6 fL (80.0-100.0) Mean Corpuscular Hemoglobin 31.9 pg (28.0-32.0) Mean Corpuscular Hemoglobin Concent 34.8 g/dL (32.0-36.0) Red Cell Distribution Width 13.4 % (11.8-14.3) Platelet Count 179 10^3/uL (140-450) Mean Platelet Volume 9.9 fL (6.9-10.8) Neutrophils (%) (Auto) 41.5 % (37.0-80.0) Lymphocytes (%) (Auto) 43.0 % (10.0-50.0) Monocytes (%) (Auto) 10.3 % (0.0-12.0) Eosinophils (%) (Auto) 4.2 % (0.0-7.0) Basophils (%) (Auto) 1.0 % (0.0-2.0) Neutrophils # (Auto) 2.5 10 ^3/uL (1.6-8.6) Lymphocytes # (Auto) 2.6 10 ^3/uL (0.4-5.4) Monocytes # (Auto) 0.6 10 ^3/uL (0-1.3) Eosinophils # (Auto) 0.3 10 ^3/uL (0-0.8) Basophils # (Auto) 0.1 10 ^3/uL (0-0.2) Nucleated Red Blood Cells 0.0 % Sodium Level 140 mmol/L (136-145) Potassium Level 4.5 mmol/L (3.5-5.1) Chloride Level 104 mmol/L (98-107) Carbon Dioxide Level 27 mmol/L (20-31) Anion Gap 9 (5-15) Blood Urea Nitrogen 15 mg/dL (9-23) Creatinine 1.12 mg/dL (0.700-1.30) Glomerular Filtration Rate Calc 78 mL/min (>90) BUN/Creatinine Ratio 13.4 (10.0-20.0) Serum Glucose 83 mg/dL (74-106) Hemoglobin A1c 5.4 % A1C (<5.7) Calcium Level 9.2 mg/dL (8.7-10.4) Triglycerides Level 93 mg/dL (< 150) Cholesterol Level 165 mg/dL (< 200) LDL Cholesterol 122 mg/dL (< 100) HDL Cholesterol 34 mg/dL (40-59) Vitamin D 25-Hydroxy 43.4 ng/mL (30.0-100) Thyroid Stimulating Hormone (TSH) 1.89 uIU/mL (0.55-4.78) Total Bilirubin 0.6 mg/dL (0.2-1.0) Aspartate Amino Transferase (AST) 34 U/L (13-40) Alanine Aminotransferase (ALT) 49 U/L (7-40) Alkaline Phosphatase 85 U/L (46-116) Total Protein 7.9 g/dL (5.7-8.2) Albumin 4.3 g/dL (3.2-4.8) Lipase 31 U/L (12-53) Urine Color Colorless (Yellow) Urine Clarity Clear (Clear) Urine pH 5.5 (5.0-9.0) Urine Specific [place] 1.010 (1.001-1.035) Urine Protein Negative (Negative) Urine Ketones Negative (Negative) Urine Blood Negative /uL (Negative) Urine Nitrite Negative (Negative) Urine Bilirubin Negative (Negative) Urine Urobilinogen Normal mg/dL (Negative) Urine Leukocyte Esterase Negative /uL (Negative) Urine RBC None seen /hpf (0 - 3) Urine Microscopic WBC < 1 /HPF (0-3) Urine Squamous Epithelial Cells None seen /hpf (<5) Urine Bacteria None seen /hpf (None Seen) Urine Glucose Normal mg/dL (Normal) Other Laboratory Tests 07/04/25 06:37 Brief Hx & Hospital Course: 54-year-old male with a history of cirrhosis hepatitis-C infection status post treatment chronic back pain history of sciatica hypertension chronic current smoker remote history of IV drug abuse came in complaining of abdominal pain. CT abdomen pelvis without contrast negative lipase is normal patient was treated with the IV fluids and pain medications ejection fraction 65 percent no vegetations while awaiting a GI consultation and further stabilization patient eloped. He understands consequences and complications. He has not informed any staff members before he eloped Consults/Reason for consult GI consult pending patient eloped Operations or Procedures CT abdomen pelvis without contrast Condition at Discharge: Fair Final Diagnosis/Problems List Intractable abdominal pain CT abdomen pelvis without contrast negative lipase normal: Pain medications IV fluids Right renal cyst Hematuria Liver cirrhosis History of hepatitis-C infection s/p treatment Transaminitis Grade 1 anterolisthesis of L5 on S1 Chronic Low-back pain History of sciatica Hypertension Chronic current smoker: Counseling time spent 20 minutes Remote history of IV drug abuse Discharge Disposition: Eloped Discharge Instruct/Medications Diet comment: Not applicable Patient eloped Activity comment: Not applicable Patient eloped Follow Up/Referral: Not applicable Patient eloped Medications: Not applicable Patient eloped No Active Prescriptions or Reported Meds 39 (Time taken for discharge summary 39 minutes) Discharge Statement: "Patient was advised to return to the ER or call 911 if any headaches, dizziness, shortness of breath, chest pain, abdominal pain, bleeding, fevers, or worsening of medical condition. Patient was counseled about treatment plan, medications, possible side effects, patientverbalized understanding. All questions were answered to the best of my ability. This discharge took greater then 30 minutes in planning, reviewing documentation, counseling the patient, and discussing with other team members." ASSESSMENT ASSESSMENT Hospital Course Eloped Assessment Date of Service: Jul 04, 2025 Billing Provider: LEO JUNIOR MD Common Visit Codes: [id number]/OBS DISCH DAY >30min LEO JUNIOR MD Jul 05, 2025 07:54
== END 2025-07-04 13:35 | disposition left against medical advice (07) | DRG 463 ==
LOC: ER 14:51 → WEST WING 21:00 → OVERFLOW 21:42 → WEST WING 23:14
PROVIDERS: ATTEND Internal Medicine Gastroenterology
DX: N10 Acute pyelonephritis (principal); K74.60 Unspecified cirrhosis of liver; I16.0 Hypertensive urgency; I10 Essential (primary) hypertension; B19.20 Unspecified viral hepatitis C without hepatic coma; F17.200 Nicotine dependence, unspecified, uncomplicated; N28.1 Cyst of kidney, acquired; R31.9 Hematuria, unspecified; M43.17 Spondylolisthesis, lumbosacral region; J98.11 Atelectasis; G89.29 Other chronic pain; Z71.6 Tobacco abuse counseling
CPT/HCPCS: 36415; 71045; 74177; 80048; 80053; 80061; 81001; 82306; 82607; 83036; 83690; 84443; 85025; 87340; 93306; 96374; 96375; 99291; G0378; J2405